=== PATIENT | male | born 1960 | race Caucasian/White ===

== ENCOUNTER 2017-11-30 08:06 | Inpatient (IN) | payer OTHER ==
[~2017-11-30] VITALS: Ht 182.9 cm; Wt 79.4 kg
[2017-11-30] MEDS ORDERED: RIVA10TA PO (08:15)
[2017-11-30] MEDS ORDERED: METO-356 PO (08:15)
[2017-11-30 08:50] LABS: BASOPHILS % (AUTO) 0.6 % (0.0-2.0); EOSINOPHILS # (AUTO) 0.1 K/uL (0.0-0.7); EOSINOPHILS % (AUTO) 1.8 % (0.0-7.0); HEMOGLOBIN 12.9 g/dL (12.5-16.3); LYMPHOCYTES # (AUTO) 1.7 K/uL (20.0-40.0); LYMPHOCYTES % (AUTO) 34.1 % (20.5-51.5); MEAN CORPUSCULAR HGB CONC 34 g/dL (32.5-36.3); MEAN CORPUSCULAR VOLUME 90.9 fL (73.0-96.2); MONOCYTES # (AUTO) 0.3 K/uL (2.0-10.0); MONOCYTES % (AUTO) 6.8 % (0.0-11.0); NEUTROPHILS # (AUTO) 2.9 K/uL (1.8-8.9); NEUTROPHILS % (AUTO) 56.7 % (38.5-71.5); PLATELET COUNT (AUTO) 232 K/uL (152-348); RED BLOOD CELL COUNT(AUTO) 4.18 MIL/uL (4.06-5.63); WHITE BLOOD COUNT (AUTO) 5.1 K/uL (3.6-10.2)
[2017-11-30 09:01] LABS: POTASSIUM 3.5 mmol/L (3.5-5.1)
[2017-11-30 09:13] LABS: BILIRUBIN,DIRECT 0.1 mg/dL (0.0-0.2); BILIRUBIN,TOTAL 0.7 mg/dL (0.2-1.0)
--- NOTE | 2017-11-30 10:48 | NUR ---
Patient is resting comfortably on gurney while using his personal electronic device. PATIENT IS PAIN FREE AT THIS TIME.
[2017-11-30] MEDS ORDERED: MAGNESIUM HYDROXIDE 30 ML LIQUID UDC PO PRN (11:00)
[2017-11-30] MEDS ORDERED: MORPHINE SULFATE 2 MG/1 ML DISP.SYRIN IV PRN (11:00)
[2017-11-30] MEDS ORDERED: ENOXAPARIN SODIUM 40 MG/0.4 ML DISP.SYRIN SQ SCH (11:00)
[2017-11-30] MEDS ORDERED: ACETAMINOPHEN 325 MG TABLET PO PRN (11:00)
[2017-11-30] MEDS ORDERED: HYDROCODONE/APAP 5-325MG TABLET PO PRN (11:00)
[2017-11-30] MEDS ORDERED: Z GUARD REMEDY PASTE 57 GM TUBE TOP PRN (11:00)
[2017-11-30] MEDS ORDERED: ONDANSETRON 4 MG/2 ML VIAL IV PRN (11:00)
[2017-11-30] MEDS ORDERED: MORPHINE SULFATE 4 MG/1 ML DISP.SYRIN IV PRN (11:00)
--- NOTE | 2017-11-30 11:00 | NUR ---
patient transferred into tele unit from ER in stable condition, iv-access patent. stable condition. vital signs stable and wnl. telemetry monitoring placed. SR. complaints of chest tightness and discomfort. belongs check and belongings checklist completed. getting echocardiogram at this time. Dr. Villalobos visited patient. orders placed by .
[2017-11-30 11:22] VITALS: BP 105/69
[2017-11-30 12:33] VITALS: BP 120/65
--- NOTE | 2017-11-30 12:35 | NUR ---
administered morphine 2 mg IV for chest tightness and discomfort.
[2017-11-30 15:12] VITALS: BP 121/63
[2017-11-30] MEDS ORDERED: LORAZEPAM 0.5 MG TABLET PO PRN (16:30)
[2017-11-30] MEDS ORDERED: RIVAROXABAN 10 MG TABLET PO SCH (18:00)
--- NOTE | 2017-11-30 18:19 | NUR ---
patient resting comfortably in bed. on O2 2L NC saturating wnl. no complaints of chest tight, chest pain, or chest discomfort at this time. ativan 0.5 mg po administered for anxiety. sinus rhythm on telemetry HR 65-70. at bedside. stable condition, no s/s of distress. call light within reach.
--- NOTE | 2017-11-30 19:10 | NUR ---
RECEIVED PT AWAKE, ALERT, ORIENTEDX4.PT EATING DINNER. PT SHOWS NO SIGNS OF DISTRESS. PT ON TELEMETRY AND ON SINUS RYTHM. PT IV INTACT AND PATENT. CALL LIGHT WITHIN REACH. BED ALARM ON, SIDE RAILS UPX2, AND IN LOW POSITION. WILL CONTINUE TO MONITOR.
[2017-11-30 20:00] VITALS: BP 130/69
[2017-12-01] VITALS: BP 125/63
[2017-12-01 04:00] VITALS: BP 122/60
--- NOTE | 2017-12-01 06:16 | NUR ---
Pt slept throughout the shift. Pt shows no signs of distress. Pt stable.Iv intact and patent.Safety and comfort provided. All needs are met. Will endorse to dayshift nurse.
[2017-12-01 06:37] LABS: CREATININE 0.9 mg/dL (0.6-1.3); MAGNESIUM 2.3 mg/dL (1.8-2.4); PHOSPHOROUS 3.8 mg/dL (2.5-4.9); POTASSIUM 4.2 mmol/L (3.5-5.1)
[2017-12-01 06:53] LABS: WHITE BLOOD COUNT (AUTO) 5.7 K/uL (3.6-10.2)
[2017-12-01 06:54] LABS: BASOPHILS # (AUTO) 0.1 K/uL (0.0-8.0); BASOPHILS % (AUTO) 0.9 % (0.0-2.0); EOSINOPHILS # (AUTO) 0.2 K/uL (0.0-0.7); HEMATOCRIT 38.2 % (36.7-47.1); HEMOGLOBIN 13.2 g/dL (12.5-16.3); LYMPHOCYTES # (AUTO) 2.2 K/uL (20.0-40.0); LYMPHOCYTES % (AUTO) 38.5 % (20.5-51.5); MEAN CORPUSCULAR HEMOGLOBIN 31.4 uug (23.8-33.4); MEAN CORPUSCULAR HGB CONC 35 g/dL (32.5-36.3); MEAN CORPUSCULAR VOLUME 90.8 fL (73.0-96.2); MONOCYTES # (AUTO) 0.6 K/uL (2.0-10.0); MONOCYTES % (AUTO) 11.3 % (0.0-11.0); NEUTROPHILS # (AUTO) 2.6 K/uL (1.8-8.9); NEUTROPHILS % (AUTO) 46.3 % (38.5-71.5); PLATELET COUNT (AUTO) 232 K/uL (152-348); RED BLOOD CELL COUNT(AUTO) 4.21 MIL/uL (4.06-5.63)
[2017-12-01] MEDS ORDERED: RIVAROXABAN 10 MG TABLET PO SCH (08:00)
--- NOTE | 2017-12-01 08:39 | NUR ---
Pt refused 0900 Toprol stating he does not take it anymore, BP 120/70 HR70
[2017-12-01] MEDS ORDERED: METOPROLOL SUCCINATE XL 25 MG TAB.SR.24H PO SCH (09:00)
--- NOTE | 2017-12-01 10:30 | NUR ---
Received a call from Madhavi from [facility]. Madhavi states that if there are any procedures pending or planned during the pt's hospitalization that she needs to be informed because she is the one that authorizes the procedures, Madhavi also states that if the pt is discharged with any follow up appointment she needs to be contacted. Phone number is [phone] Pt is aware of this call
[2017-12-01 11:44] VITALS: BP 119/68
[2017-12-01] MEDS ORDERED: LORA-258 PO (13:03)
--- NOTE | 2017-12-01 14:07 | NUR ---
Pt has been discharge with orders. Pt VS stale, no apparent s/s of SOB, pain, distress or discomfort. Pt is alert, and oriented times 4 able to verbalize needs. Pt is by bed side. Discharge instruction given and acknowledged by pt. Information given on Ativan prescription. Discharge paper and personal belongings list sign for. IV line and ID band removed. Pt was able to walk out with his by his side. Pt refused to be wheelchair down to lobby. will be calling pharmacy to place Ativan orders
== END 2017-12-01 14:10 | disposition home or self-care (01) | DRG 206 ==
LOC: ER 08:06 → TELE 10:50
PROVIDERS: ADMIT Internal Medicine; ATTEND Internal Medicine
DX: M94.0 Chondrocostal junction syndrome [Tietze] (principal); E87.1 Hypo-osmolality and hyponatremia; I48.0 Paroxysmal atrial fibrillation; I10 Essential (primary) hypertension; Z79.01 Long term (current) use of anticoagulants; Z87.891 Personal history of nicotine dependence; Z88.0 Allergy status to penicillin; R00.1 Bradycardia, unspecified; T44.7X5A Adverse effect of beta-adrenoreceptor antagonists, initial encounter; Y92.009 Unspecified place in unspecified non-institutional (private) residence as the place of occurrence of the external cause
CPT/HCPCS: 36415; 70030-TC; 83735; 84100; 85025; 85730; 93005; 93307; A4663; J2270